=== PATIENT | female | born 1985 | race Native Hawaiian/Other Pacific Islander ===

== ENCOUNTER 2018-04-04 12:36 | Outpatient (CLI) | payer OTHER | END 2018-04-04 12:38 | disposition short-term general hospital (02) | LOC: AMB 12:36 | DX: M54.5 Low back pain (principal); S00.81XA Abrasion of other part of head, initial encounter; V49.88XA Car occupant (driver) (passenger) injured in other specified transport accidents, initial encounter; Y92.488 Other paved roadways as the place of occurrence of the external cause | CPT/HCPCS: A0425; A0427 ==

== ENCOUNTER 2018-04-04 12:40 | Emergency (ER) | payer OTHER ==
[~2018-04-04] VITALS: Ht 170.2 cm; Wt 77.1 kg
== END 2018-04-04 15:01 | disposition home or self-care (01) ==
LOC: ED 12:40
DX: S00.83XA Contusion of other part of head, initial encounter (principal); R52 Pain, unspecified; S90.852A Superficial foreign body, left foot, initial encounter; R07.89 Other chest pain; R42 Dizziness and giddiness; V59.40XA Driver of pick-up truck or van injured in collision with unspecified motor vehicles in traffic accident, initial encounter
CPT/HCPCS: 96372; 99283; J1885

== ENCOUNTER 2023-12-26 13:52 | Outpatient (CLI) | payer BC | END 2023-12-26 19:22 | disposition home or self-care (01) | LOC: MAMMO 13:52 | PROVIDERS: ATTEND Physician Assistant | DX: Z12.31 Encounter for screening mammogram for malignant neoplasm of breast (principal) ==